=== PATIENT | male | born 1980 | race Caucasian/White ===

== ENCOUNTER 2020-02-27 18:58 | Emergency (ER) | payer OTHER ==
[~2020-02-27] VITALS: Ht 182.9 cm; Wt 72.6 kg
[2020-02-27 19:13] VITALS: BP 134/73
== END 2020-02-27 20:15 | disposition home or self-care (01) ==
LOC: M.ERS 18:58
DX: S51.811A Laceration without foreign body of right forearm, initial encounter (principal); W25.XXXA Contact with sharp glass, initial encounter; Y93.89 Activity, other specified; Y92.89 Other specified places as the place of occurrence of the external cause; Y99.8 Other external cause status

== ENCOUNTER 2020-03-05 14:18 | Emergency (ER) | payer OTHER ==
[~2020-03-05] VITALS: Ht 182.9 cm; Wt 86.2 kg
[2020-03-05] MEDS ORDERED: IBUPROFEN 800800 M1 PO (15:30)
[2020-03-05] MEDS ORDERED: NORCO 5-325 TA1 EAC2 PO (15:30)
[2020-03-05 15:39] VITALS: BP 130/71
== END 2020-03-05 15:40 | disposition home or self-care (01) ==
LOC: M.ERS 14:18
DX: S92.515A Nondisplaced fracture of proximal phalanx of left lesser toe(s), initial encounter for closed fracture (principal); W22.8XXA Striking against or struck by other objects, initial encounter; Y93.89 Activity, other specified; Y92.89 Other specified places as the place of occurrence of the external cause; Y99.8 Other external cause status